=== PATIENT | male | born 1995 | race Caucasian/White ===

== ENCOUNTER 2025-03-08 10:29 | Emergency (ER) | payer SELFPAY ==
[~2025-03-08] VITALS: Ht 167.6 cm; Wt 73.0 kg
[2025-03-08 10:33] VITALS: BP 150/92; PULSE 100; RESP 20; TEMP 37.1; O2SAT 100
[2025-03-08] MEDS ORDERED: ALBU18HF2 IH (14:08)
== END 2025-03-08 14:32 | disposition home or self-care (01) ==
LOC: ER 10:29
DX: S82.892A Other fracture of left lower leg, initial encounter for closed fracture (principal); Z76.0 Encounter for issue of repeat prescription; X58.XXXA Exposure to other specified factors, initial encounter; Y93.89 Activity, other specified; Y92.89 Other specified places as the place of occurrence of the external cause; Y99.8 Other external cause status
CPT/HCPCS: 29515; 73560; 73610; 73620; 99284